=== PATIENT | male | born 1955 | race Caucasian/White ===

== ENCOUNTER → 2023-10-28 11:06 | Outpatient (REF) | payer MEDICARE, OTHER, SELFPAY | LOC: DHCBC/DCA 11:06 | PROVIDERS: ATTENDING PHYSICIAN Internal Medicine Cardiovascular Disease; FAMILY PHYSICIAN Family Medicine | DX: I25.10 Atherosclerotic heart disease of native coronary artery without angina pectoris (principal) | CPT/HCPCS: 78452; 93017; A9500; J2785 ==

== ENCOUNTER → 2023-12-15 10:03 | Outpatient (REF) | payer MEDICARE, OTHER, SELFPAY ==
[2023-12-15 11:12] LABS: % Basophils 0.8 % (0-2); % Eosinophils 2.1 % (0-6); % Immature Granulocytes 0.2 % (0-0.5); % Lymphocytes 23.1 % (20.5-51.1); % Monocytes 11.5 % (1.7-9.3); % Neutrophils 62.3 % (42.2-75.2); Absolute Eosinophils 0.1 10^3/uL (0-0.7); Absolute Lymphocytes 1.1 10^3/uL (1.2-3.4); Absolute Monocytes 0.5 10^3/uL (0.1-0.6); Absolute Neutrophils 2.9 10^3/uL (1.4-6.5); Hematocrit 40.5 % (39.0-52.0); Hemoglobin 13.4 g/dL (13.0-18.0); Mean Corp Hgb Conc. 33.1 g/dL (33.0-37.0); Mean Corpuscular Hgb 31.1 pg (27.0-31.0); Mean Platelet Volume 9.7 fL (7.4-10.4); Nucleated Red Blood Cells % 0 % (-); Platelet Count 151 10^3/uL (130-400); Red Blood Cell Count 4.31 10^6/uL (4.70-6.10); Red Cell Dist. Width 12.7 % (11.5-14.5); White Blood Cell Count 4.7 10^3/uL (4.8-10.8)
[2023-12-16 11:22] LABS: ALT (SGPT) 28 U/L (0-50); AST (SGOT) 34 U/L (17-59); Albumin 3.7 g/dl (3.5-5.0); Alkaline Phosphatase 78 U/L (38-126); Blood Urea Nitrogen 13 mg/dl (9-20); Calcium 9.1 mg/dl (8.4-10.2); Carbon Dioxide 26 mmol/L (22-30); Chloride 104 mmol/L (98-107); Glucose 116 mg/dl (70-99); Sodium 138 mmol/L (135-145); Total Bilirubin 0.6 mg/dl (0.2-1.3); Total Protein 6.6 g/dl (6.3-8.2); eGFR > 60.00
== END ==
LOC: SDSPAT 10:03
PROVIDERS: ATTENDING PHYSICIAN Internal Medicine Cardiovascular Disease; FAMILY PHYSICIAN Family Medicine; OTHER PHYSICIAN Internal Medicine Cardiovascular Disease
DX: Z01.818 Encounter for other preprocedural examination (principal); R94.39 Abnormal result of other cardiovascular function study; I25.10 Atherosclerotic heart disease of native coronary artery without angina pectoris; I25.5 Ischemic cardiomyopathy
CPT/HCPCS: 36415; 80053; 85025; 93005

== ENCOUNTER 2023-12-23 06:14 | Day surgery (SDC) | payer MEDICARE, OTHER, SELFPAY ==
[2023-12-15 10:26] VITALS: BMI 21.4
[2023-12-23] VITALS (7 sets, daily range): BP systolic 114–148; BP diastolic 67–79; BMI 20.1
[2023-12-23] MEDS: NSS 201 ML IV (07:17)
[2023-12-23] MEDS: NSS 1000 IV (08:28)
--- NOTE | 2023-12-23 08:37 | ITS.CL.CATH ---
Hydro Technician - Catheterization
Cardiac Catheterization
Procedure Report:
CARDIAC CATHETERIZATION REPORT
Date of Procedure: 12/23/2023
Referring: Juan Gan MD
Indication: Abnormal stress test with ischemic cardiomyopathy
HEMODYNAMIC DATA
AO: 137/64
LV: 137/17
LEFT VENTRICULOGRAPHY: Focal distal anterolateral akinesis with severe inferoapical hypokinesis with EF 37%
CORONARY ANGIOGRAPHY
Dominance: Right
Left Main: Normal
LAD: 70% mid LAD stenosis distal to the first septal door patcher. There has been mild progression of this lesion compared with the prior study. There is a 70-80% lesion in the mid LAD proximal to the JAELYN touchdown site. The distal LAD fills
antegrade and via a widely patent SALGADO graft. There is 50% true apical LAD stenosis unchanged from the prior study from June 2019. A large diagonal branch fills retrograde from an epicardial apical LAD collateral.
Circumflex: Widely patent proximal circumflex stent extends into the large OM1. There is 60-70% circumflex stenosis just distal to the takeoff of OM1. There are two layers of stent jailing the circumflex at this location. This is unchanged from
the prior angiogram from 2018. The distal circumflex is subtotally occluded and a low-lying obtuse marginal branch fills retrograde via collaterals similar to the prior study
RCA: 70% ostial and proximal stenoses with occlusion of the mid RCA unchanged from the prior study. There is faint [id number] filling of distal vessels.
Bypass grafts:
1. Left internal mammary graft to the LAD remains widely patent with excellent runoff
2. The saphenous vein graft to the RCA was shown to be occluded on the prior study and not injected
3. The saphenous vein graft to the obtuse marginal branch was found to be occluded on the prior study and not injected
Closure Device: 6 [place] Angio-Seal RFA
Radiation (mGy): 329
DAP (cm2.Gy): 27.9
Fluoroscopy time: 3.2 minutes
CONCLUSIONS
1: Anterolateral akinesis with severe inferoapical hypokinesis with EF 37%
2: Severe multivessel CAD with patent SALGADO-LAD bypass graft. The coronary anatomy is similar to the prior study from June 2019
3. Continue medical therapy
Copy to: Juan Gan MD, Pedro Pandey MD
Nilson Tsai MD, [facility], [facility]
--- NOTE | 2023-12-23 10:15 | VATNOTE ---
Right SQ port flushed with 500 unnits heparin and deaccessed.
== END 2023-12-23 10:49 | disposition home or self-care (01) ==
LOC: CATH 06:14
PROVIDERS: ATTENDING PHYSICIAN Internal Medicine Cardiovascular Disease; FAMILY PHYSICIAN Family Medicine; OTHER PHYSICIAN Internal Medicine Cardiovascular Disease
DX: I25.10 Atherosclerotic heart disease of native coronary artery without angina pectoris (principal); R94.39 Abnormal result of other cardiovascular function study; I10 Essential (primary) hypertension; E78.5 Hyperlipidemia, unspecified; I25.5 Ischemic cardiomyopathy; Z95.1 Presence of aortocoronary bypass graft; Z95.5 Presence of coronary angioplasty implant and graft; Z95.810 Presence of automatic (implantable) cardiac defibrillator; Z79.82 Long term (current) use of aspirin
CPT/HCPCS: 93459; C1760; C1894; Q9967

== ENCOUNTER → 2024-05-18 11:21 | Outpatient (REF) | payer MEDICARE, OTHER, SELFPAY | LOC: HWRCS 11:21 | PROVIDERS: ATTENDING PHYSICIAN Nurse Practitioner | DX: I25.10 Atherosclerotic heart disease of native coronary artery without angina pectoris (principal); I25.5 Ischemic cardiomyopathy | CPT/HCPCS: 93306 ==